=== PATIENT | female | born 1955 | race Caucasian/White ===

== ENCOUNTER 2024-02-27 06:19 | Day surgery (SDC) | payer MEDICARE ==
[~2024-02-27 06:19] MED LIST: BETADINE 5% OPHTHALMIC 30 ML OP ONE; NON-FORMULARY ITEM OP ONE; cefUROXime sodium 0.005 GM in Sodium Chloride Flush 30 ML*** 0.5 ML IJ ONE
[2024-02-27] MEDS ORDERED: Epinephrine Preservative Free 1 MG/ML IJ ONE (06:20)
[2024-02-27] MEDS ORDERED: Lactated Ringers 1,000 ML IV ONE ×2 (07:40→11:50)
[2024-02-27] MEDS: Lactated Ringers 1,000 ML IV SCH (07:44)
[2024-02-27 08:07] LABS: Absolute Neutrophil Ct (ANC) 10.59 x10^3/uL (1.56-6.13); BASOPHIL % 0.4 % (0.1-1.2); Basophil (Absolute #) 0.05 x10^3/uL (0.01-0.08); Eosinophil % 1.4 % (0.7-5.8); Eosinophil (Absolute #) 0.18 x10^3/uL (0.04-0.36); Hematocrit 38.8 % (34.1-44.9); Hemoglobin 12.7 g/dL (11.2-15.7); IMMATURE GRAN # 0.08 x10^3u/L (0.001-0.031); IMMATURE GRAN % 0.6 % (0.001-0.429); Lymphocyte (Absolute #) 1.31 x10^3/uL (1.18-3.74); Lymphocytes % 10.1 % (19.3-51.7); Mean Corpuscular Hemoglobin 29.1 pg (25.6-32.2); Mean Corpuscular Hgb Concent. 32.7 g/dL (32.2-35.5); Mean Platelet Volume 9.2 fL (9.4-12.3); Monocyte (Absolute #) 0.78 x10^3/uL (0.24-0.86); Neutrophil % 81.5 % (34.0-71.1); Platelet Count 375 x10^3/uL (182-369); Red Blood Count 4.36 x10^6/uL (3.93-5.22); Red Cell Distribution Width 13.8 % (11.7-14.4)
[2024-02-27] MEDS: TETRACAINE 0.5% STERI-UNIT SOL OP ONE ×2 (08:27→08:56)
[2024-02-27] MEDS: Ak-Dilate OPHTHALMIC*** 1.065 ML, Cyclogyl 1% OPHTH SOL 1.065 ML, GATIFLOXACIN 0.5% OPH... OP ONE (08:29)
[2024-02-27] MEDS ORDERED: Zofran 4 MG/2 ML VIAL IV PRN (08:30)
[2024-02-27 08:51] LABS: ANION GAP 14.4 MEQ/L (5-15); Calcium 9.9 mg/dL (8.4-10.2); Creatinine 1 0.41 mg/dL (0.52-1.04); EST GLOMERULAR FILTRATION RATE 107.1 ML/MIN
[2024-02-27] MEDS ORDERED: Versed 2 MG/2 ML Injection ONE (11:15)
[2024-02-27] MEDS ORDERED: DIPRIVAN 200 MG/20 ML IV ONE (11:15)
[2024-02-27] MEDS ORDERED: SUBLIMAZE 100 MCG/2 ML ONE (11:28)
[2024-02-27] MEDS ORDERED: Decadron 4 MG INJ ONE (11:45)
[2024-02-27 11:58] VITALS: RESP 16
[2024-02-27] MEDS: ACETAZOLAMIDE 250 MG TABLET PO ONE (11:59)
[2024-02-27 12:09] VITALS: BP 126/72; PULSE 79; TEMP 98.1; O2SAT 93
== END 2024-02-27 12:19 | disposition home or self-care (01) ==
LOC: SDC 06:19
PROVIDERS: ATTEND Ophthalmology
DX: H25.811 Combined forms of age-related cataract, right eye (principal); I10 Essential (primary) hypertension; E11.9 Type 2 diabetes mellitus without complications; Z79.899 Other long term (current) drug therapy
CPT/HCPCS: 36415; 80048; 85025; 93005; C1780; J0171; J1100; J2250; J2704; J3010; A9270-GY

== ENCOUNTER 2024-03-26 08:43 | Day surgery (SDC) | payer MEDICARE ==
[~2024-03-26 08:43] MED LIST changes: -BETADINE 5% OPHTHALMIC 30 ML OP ONE; +Lactated Ringers 1,000 ML IV ONE; -NON-FORMULARY ITEM OP ONE; -cefUROXime sodium 0.005 GM in Sodium Chloride Flush 30 ML*** 0.5 ML IJ ONE
[2024-03-26] MEDS ORDERED: BETADINE 5% OPHTHALMIC 30 ML OP ONE (09:00)
[2024-03-26] MEDS ORDERED: cefUROXime sodium 0.005 GM in Sodium Chloride Flush 30 ML*** 0.5 ML IJ ONE (09:00)
[2024-03-26] MEDS ORDERED: NON-FORMULARY ITEM OP ONE (09:00)
[2024-03-26] MEDS: TETRACAINE 0.5% STERI-UNIT SOL OP ONE ×2 (09:54→10:20)
[2024-03-26] MEDS: Ak-Dilate OPHTHALMIC*** 1.065 ML, Cyclogyl 1% OPHTH SOL 1.065 ML, GATIFLOXACIN 0.5% OPH... OP ONE (09:55)
[2024-03-26] MEDS: Lactated Ringers 1,000 ML IV SCH (09:55)
[2024-03-26 10:32] LABS: Calcium 9.1 mg/dL (8.4-10.2); Creatinine 1 0.46 mg/dL (0.52-1.04); EST GLOMERULAR FILTRATION RATE 104.2 ML/MIN; MAGNESIUM 1.3 mg/dL (1.6-2.3); Potassium 3.9 mmol/L (3.5-5.1)
[2024-03-26] MEDS: SODIUM CHLORIDE 0.9% IV SCH (10:58)
[2024-03-26] MEDS: MAGNESIUM SULFATE IV SCH (10:58)
[2024-03-26] MEDS: Sodium Chloride 0.9% 1000 ML 1,000 ML IV SCH (10:59)
[2024-03-26] MEDS ORDERED: Sodium Chloride 0.9% 1000 ML 1,000 ML ONE (10:59)
[2024-03-26] MEDS ORDERED: Epinephrine Preservative Free 1 MG/ML IJ ONE (11:15)
[2024-03-26] MEDS ORDERED: Zofran 4 MG/2 ML VIAL IV PRN (11:30)
[2024-03-26] MEDS ORDERED: DIPRIVAN 200 MG/20 ML IV ONE ×2 (11:50→12:13)
[2024-03-26] MEDS ORDERED: ROBINUL ONE (12:31)
[2024-03-26] MEDS: ACETAZOLAMIDE 250 MG TABLET PO ONE (12:38)
[2024-03-26] MEDS: Klor Con PO SCH (12:45)
[2024-03-26 12:47] VITALS: RESP 16
[2024-03-26 12:51] VITALS: BP 134/81; PULSE 88; O2SAT 94
[2024-03-26 12:58] VITALS: TEMP 96.8
== END 2024-03-26 13:10 | disposition home or self-care (01) ==
LOC: SDC 08:43
PROVIDERS: ATTEND Ophthalmology
DX: H25.812 Combined forms of age-related cataract, left eye (principal); I10 Essential (primary) hypertension; E11.9 Type 2 diabetes mellitus without complications
CPT/HCPCS: 36415; 80048; 82947; 83735; C1780; J0171; J2704; J3475; A9270-GY